=== PATIENT | male | born 1980 | race Caucasian/White ===

== ENCOUNTER 2019-03-23 20:16 | Emergency (ER) | payer OTHER ==
[~2019-03-23] VITALS: Ht 180.3 cm; Wt 97.5 kg
== END 2019-03-23 22:32 | disposition home or self-care (01) ==
LOC: ER 20:16
DX: S90.31XA Contusion of right foot, initial encounter (principal); W18.39XA Other fall on same level, initial encounter; Y93.89 Activity, other specified; Y92.89 Other specified places as the place of occurrence of the external cause; Y99.8 Other external cause status

== ENCOUNTER 2019-04-07 19:18 | Emergency (ER) | payer OTHER ==
[~2019-04-07] VITALS: Ht 180.3 cm; Wt 90.7 kg
[2019-04-07] MEDS ORDERED: PANADOL EXTRA500 MG (19:50)
== END 2019-04-07 21:29 | disposition home or self-care (01) ==
LOC: ER 19:18
DX: M25.561 Pain in right knee (principal)